=== PATIENT | female | born 1970 | race Caucasian/White ===

== ENCOUNTER → 2016-07-06 | Outpatient (CLI) | payer MEDICARE, MEDICAID ==
[~2016-07-06] MED LIST: 00186-0372-20; 00186-0372-20 IH; ABILIFY 15MG TA15 MG PO; ALBUTEROL0.09 MG/A1 IH; APAP PO; ASPIR-LOW81 MG PO; ASPIR-LOX325 MG PO; ASPIRIN E.C. 8181 MG PO; ATIVAN 1MG T1 MG/TAB PO; ATIVAN2 MG PO; ATROVENT INHALE14 GM IH; BENADRYL25 M2 PO; BENZTROPINE1 MG PO; CARAFATE 1GM1 G PO; CARAFATE S1 GM/10 ML PO; CARDIZEM CD 24240 MG PO; CELEXA 20MG20 MG/TAB PO; CELEXA40 MG PO; CETIRIZINE10 MG PO; CITALOPRAM HYDR40 MG PO; CLARITIN 1010 MG/TAB PO; CLONAZEPAM0.5 MG PO; CLONAZEPAM1 M1 PO; COGENTIN; COLACE 100100 MG/CAP PO; DESYREL 100MG100 MG PO; DESYREL DIVIDO150 M1 PO; DILANTIN; DILANTIN PO; DOXEPIN50 MG PO; DULCOLAX S10 MG/SUPP RC; DULCOLAX TAB5 MG PO; EFFEXOR-XR150 MG PO; FE-TABS325 MG PO; GENTLE LAXATIVE5 MG PO; GLUCOPHAGE500 MG/TAB PO; GLUCOTROL10 MG PO; IMODIUM 2MG CAPS2 MG PO; INSLANT SQ; INVEGA SUSTENN117 MG IM; IRON250 MG PO; JANUVIA25 MG PO; KEPPRA 500MG500 MG PO; KEPPRA1000 MG PO; KEPPRA750 MG PO; KLONOPIN 0.5MG0.5 MG PO; KLONOPIN 1MG1 MG PO; KLONOPIN WAFE0.25 MG PO; KLONOPIN WAFER0.5 MG PO; KLOR-CON M2020 MEQ PO; LANTUS SOLOS100 U/ML SQ; LATUDA60 MG PO; LATUDA80 MG PO; LEXAPRO 5MG5 MG PO; LEXAPRO20 MG PO; LOPRESSOR 550 MG/TAB PO; MECLIZINE25 M1 PO; MECLIZINE25 MG PO; MELATONIN5 M1 PO; MIRTAZAPINE45 M1 PO; MYRBETR50MG PO; MYSOLINE 250MG250 MG PO; NICODERM C14 MG/24 H TD; NORCO 325 MG-51 TAB PO; NORCO 325 MG-7.1 TAB PO; NYSTATIN 100MU/M1 ML PO; OMEPRAZOLE20 MG PO; PEPCID 20MG TAB20 MG PO; PHENERGAN 25 TA25 MG PO; PHENERGAN W/CO120 ML PO; PHENYTEK; POTASSIUM CH2 MEQ/ML PO; PREDNISONE20 MG PO; PRILOSEC 20MG20 MG PO; PRILOSEC20 MG PO; PRILOTC PO; PRINIVIL10 MG PO; PROTONIX 40MG T40 MG PO; PROTONIX20 MG PO; ROBITUSSIN DM480 ML PO; ROBITUSSIN100 MG/5 M PO; ROXICODONE 55 MG/TAB PO; RT ADVAIR 228 DISKUS IH; RT ALBUTER2.5 MG/0.5 IH; SEROQUEL300 MG PO; SEROQUEL400 MG PO; SEROQUEL50 MG PO; SERTRALINE100 MG PO; ST. JOSEPH81 M1 PO; TRAZADONE HYDR100 MG PO; TRAZODO50 MG PO; TYLENOL 325MG325 MG PO; VICODIN 5/5001 UDTAB PO; VIMPAT100 MG PO; VITAMIN D32000 IU PO; ZOFRAN 4MG T4 MG/TAB PO; ZOFRAN ODT4 MG PO; ZOLOFT100 MG PO; ZONEGRAN100 MG PO; ZYPREXA 5MG5 MG PO; ZYPREXA ZYD10 MG/TAB PO; ZYPREXA ZYDIS15 MG PO; ZYPREXA2.5 MG PO; ZYPREXA7.5 MG PO; [UNRECOGNIZED DRUG - OTHER]; [UNRECOGNIZED DRUG - OTHER] PO
== END ==
LOC: ZCOL.LAB 22:49
DX: N39.0 Urinary tract infection, site not specified (principal)

== ENCOUNTER → 2016-07-15 | Outpatient (CLI) | payer MEDICARE, MEDICAID ==
[2016-07-16 00:03] LABS: INFLUENZA B NEGATIVE
== END ==
LOC: ZCOL.LAB 17:11
PROVIDERS: Internal Medicine
DX: J11.2 Influenza due to unidentified influenza virus with gastrointestinal manifestations (principal); R27.8 Other lack of coordination

== ENCOUNTER → 2016-10-06 | Outpatient (CLI) | payer MEDICARE, MEDICAID | LOC: ZCOL.LAB 13:22 | DX: F41.8 Other specified anxiety disorders (principal); K21.9 Gastro-esophageal reflux disease without esophagitis ==

== ENCOUNTER → 2016-10-13 | Outpatient (CLI) | payer MEDICARE, MEDICAID | LOC: ZCOL.LAB 13:55 | DX: Z02.89 Encounter for other administrative examinations (principal) ==

== ENCOUNTER 2016-11-10 21:56 | Emergency (ER) | payer MEDICARE, MEDICAID ==
[2008-09-06 22:55] VITALS: BP 125/82
[~2016-11-10] VITALS: Ht 160 cm; Wt 109.1 kg
[~2016-11-10 21:56] MED LIST changes: -CARAFATE S1 GM/10 ML PO; -CLARITIN 1010 MG/TAB PO; -DESYREL DIVIDO150 M1 PO; -KLONOPIN WAFE0.25 MG PO; -LATUDA60 MG PO; -MELATONIN5 M1 PO; -PEPCID 20MG TAB20 MG PO; -PRINIVIL10 MG PO; -PROTONIX20 MG PO; -ROBITUSSIN100 MG/5 M PO; -ROXICODONE 55 MG/TAB PO; -ZOFRAN ODT4 MG PO; -[UNRECOGNIZED DRUG - OTHER] PO
[2016-11-10 22:02] VITALS: TEMP 98
[2016-11-10 22:25] LABS: BASO % 0.5 % (0.0-2.0); EOS # 0.4 (0.0-0.7); EOS % 5.2 % (0-4.0); GRAN % 47.3 % (42.2-75.2); HEMATOCRIT 40.4 % (37.0-47.0); HEMOGLOBIN 13.9 g/dl (12.5-16.0); LYMPH # 3.4 (1.2-3.4); LYMPH % 40.2 % (20.0-51.0); MEAN CELL VOLUME 87 fl (80.0-100.0); MEAN CORPUSCULAR HEMOGLOBIN 30 pg (27.0-31.0); MEAN CORPUSCULAR HGB CONC 34 g/dl (33.0-37.0); MEAN PLATELET VOLUME 12.2 fl (7.4-10.4); MONO # 0.5 (0.1-0.6); MONO % 6.3 % (1.7-9.3); PLATELET COUNT 185 K/mm3 (130-400); RED BLOOD COUNT 4.65 M/mm3 (4.10-5.30); REDCELL DISTRIBUTION WIDTH-CV 12.4 % (11.5-14.5); WHITE BLOOD COUNT 8.5 K/mm3 (4.8-10.8)
[2016-11-10 22:31] LABS: ADJUSTED CALCIUM 9.2 mg/dL (8.4-10.2); ALANINE AMINOTRANSFERASE 64 U/L (9-52); ALBUMIN 3.9 gm/dL (3.5-5.0); ALKALINE PHOSPHATASE 114 U/L (50-136); ANION GAP 11 mmol/L (7-16); BILIRUBIN,TOTAL 0.6 mg/dL (0.0-1.0); BLOOD UREA NITROGEN 10 mg/dL (7-17); CALCIUM 9.1 mg/dL (8.4-10.2); CARBON DIOXIDE 26 mmol/L (22-30); CHLORIDE 102 mmol/L (98-107); CREATININE, serum 0.81 mg/dL (0.52-1.25); GLUCOSE 196 mg/dL (74-106); MAGNESIUM 1.6 mg/dL (1.6-2.3); POTASSIUM 3.4 mmol/L (3.4-5.0); SODIUM 139 mmol/L (137-145); TOTAL PROTEIN 7.1 gm/dL (6.4-8.2)
[2016-11-10 22:48] LABS: PROLACTIN 15.4 ng/mL (3.0-18.6)
[2016-11-10 23:38] LABS: TROPONIN-I < 0.012 ng/mL (0.000-0.034)
[2016-11-11 00:04] VITALS: BP 127/92; PULSE 94
[2017-02-09] MEDS ORDERED: DESYREL DIVIDO150 M1 PO (00:33)
[2017-02-09] MEDS ORDERED: LATUDA60 MG PO (00:35)
[2017-02-09] MEDS ORDERED: MELATONIN5 M1 PO (00:37)
[2017-02-09] MEDS ORDERED: PRINIVIL10 MG PO (00:39)
[2017-02-09] MEDS ORDERED: PEPCID 20MG TAB20 MG PO (00:40)
[2017-02-09] MEDS ORDERED: GLUCOPHAGE500 MG/TAB PO (00:41)
[2017-02-09] MEDS ORDERED: ROBITUSSIN100 MG/5 M PO (00:47)
[2017-02-09] MEDS ORDERED: [UNRECOGNIZED DRUG - OTHER] PO (00:48)
[2017-02-09] MEDS ORDERED: CLARITIN 1010 MG/TAB PO (00:49)
[2017-02-09] MEDS ORDERED: ZOFRAN ODT4 MG PO (00:50)
[2017-02-18] MEDS ORDERED: ROXICODONE 55 MG/TAB PO (17:19)
[2017-02-18] MEDS ORDERED: KLONOPIN 0.5MG0.5 MG PO (18:31)
[2017-02-18] MEDS ORDERED: KLONOPIN WAFE0.25 MG PO (18:32)
[2017-02-18] MEDS ORDERED: PROTONIX20 MG PO (18:34)
[2017-02-18] MEDS ORDERED: TYLENOL 325MG325 MG PO (18:35)
[2017-02-18] MEDS ORDERED: CARAFATE S1 GM/10 ML PO (19:42)
== END 2016-11-11 00:32 | disposition home or self-care (01) ==
LOC: COL.ER 21:56
PROVIDERS: Emergency Medicine
DX: R56.9 Unspecified convulsions (principal); F41.9 Anxiety disorder, unspecified; F32.9 Major depressive disorder, single episode, unspecified
CPT/HCPCS: J2060

== ENCOUNTER → 2016-11-16 | Outpatient (CLI) | payer MEDICARE, MEDICAID ==
[~2016-11-16] MED LIST changes: +CARAFATE S1 GM/10 ML PO; +CLARITIN 1010 MG/TAB PO; +DESYREL DIVIDO150 M1 PO; +KLONOPIN WAFE0.25 MG PO; +LATUDA60 MG PO; +MELATONIN5 M1 PO; +PEPCID 20MG TAB20 MG PO; +PRINIVIL10 MG PO; +PROTONIX20 MG PO; +ROBITUSSIN100 MG/5 M PO; +ROXICODONE 55 MG/TAB PO; +ZOFRAN ODT4 MG PO; +[UNRECOGNIZED DRUG - OTHER] PO
[2016-11-16 05:35] LABS: BASO % 0.5 % (0.0-2.0); EOS # 0.5 (0.0-0.7); EOS % 5.7 % (0-4.0); GRAN # 4.2 (1.4-6.5); GRAN % 51.1 % (42.2-75.2); HEMATOCRIT 44.7 % (37.0-47.0); HEMOGLOBIN 15.4 g/dl (12.5-16.0); LYMPH # 3.1 (1.2-3.4); LYMPH % 37.2 % (20.0-51.0); MEAN CELL VOLUME 88 fl (80.0-100.0); MEAN CORPUSCULAR HEMOGLOBIN 30 pg (27.0-31.0); MEAN CORPUSCULAR HGB CONC 35 g/dl (33.0-37.0); MONO # 0.4 (0.1-0.6); MONO % 5.1 % (1.7-9.3); PLATELET COUNT 205 K/mm3 (130-400); RED BLOOD COUNT 5.09 M/mm3 (4.10-5.30); REDCELL DISTRIBUTION WIDTH-CV 12.3 % (11.5-14.5); WHITE BLOOD COUNT 8.2 K/mm3 (4.8-10.8)
[2016-11-16 05:42] LABS: ADJUSTED CALCIUM 9.6 mg/dL (8.4-10.2); ALBUMIN 3.7 gm/dL (3.5-5.0); BILIRUBIN,TOTAL 0.5 mg/dL (0.0-1.0); CALCIUM 9.4 mg/dL (8.4-10.2); CREATININE, serum 0.68 mg/dL (0.52-1.25); POTASSIUM 3.6 mmol/L (3.4-5.0); TOTAL PROTEIN 6.9 gm/dL (6.4-8.2)
== END ==
LOC: ZCOL.LAB 04:00
PROVIDERS: Internal Medicine
DX: E11.9 Type 2 diabetes mellitus without complications (principal)

== ENCOUNTER → 2016-12-04 | Outpatient (CLI) | payer MEDICARE, MEDICAID ==
[2016-12-04 13:23] LABS: BASO # 0.1 (0.0-0.2); BASO % 0.6 % (0.0-2.0); EOS # 0.2 (0.0-0.7); EOS % 2.3 % (0-4.0); GRAN # 7.3 (1.4-6.5); LYMPH # 0.9 (1.2-3.4); LYMPH % 10.2 % (20.0-51.0); MEAN CELL VOLUME 89 fl (80.0-100.0); MEAN CORPUSCULAR HGB CONC 32 g/dl (33.0-37.0); MEAN PLATELET VOLUME 11.9 fl (7.4-10.4); MONO # 0.6 (0.1-0.6); MONO % 6.9 % (1.7-9.3); PLATELET COUNT 218 K/mm3 (130-400); RED BLOOD COUNT 3.87 M/mm3 (4.10-5.30); REDCELL DISTRIBUTION WIDTH-CV 15.5 % (11.5-14.5); WHITE BLOOD COUNT 9.2 K/mm3 (4.8-10.8)
[2016-12-04 13:24] LABS: HEMATOCRIT 34.3 % (37.0-47.0); MEAN CORPUSCULAR HEMOGLOBIN 28 pg (27.0-31.0)
[2016-12-04 13:34] LABS: ADJUSTED CALCIUM 9.5 mg/dL (8.4-10.2); ALBUMIN 3.8 gm/dL (3.5-5.0); BILIRUBIN,TOTAL 0.6 mg/dL (0.0-1.0); CALCIUM 9.3 mg/dL (8.4-10.2); CREATININE, serum 0.63 mg/dL (0.52-1.25); POTASSIUM 4.4 mmol/L (3.4-5.0); TOTAL PROTEIN 6.7 gm/dL (6.4-8.2)
== END ==
LOC: ZCOL.LAB 13:14
PROVIDERS: Internal Medicine
DX: F31.9 Bipolar disorder, unspecified (principal); J44.9 Chronic obstructive pulmonary disease, unspecified; E11.9 Type 2 diabetes mellitus without complications

== ENCOUNTER → 2017-01-09 | Outpatient (CLI) | payer MEDICARE, MEDICAID | LOC: ZCOL.LAB 15:13 | DX: E78.3 Hyperchylomicronemia (principal) ==

== ENCOUNTER 2017-02-08 15:58 | Emergency (ER) | payer MEDICARE, MEDICAID ==
[2008-09-06 22:55] VITALS: BP 125/82
[~2017-02-08] VITALS: Ht 160 cm; Wt 100.0 kg
[~2017-02-08 15:58] MED LIST changes: -CARAFATE S1 GM/10 ML PO; -CLARITIN 1010 MG/TAB PO; -DESYREL DIVIDO150 M1 PO; -KLONOPIN WAFE0.25 MG PO; -LATUDA60 MG PO; -MELATONIN5 M1 PO; -PEPCID 20MG TAB20 MG PO; -PRINIVIL10 MG PO; -PROTONIX20 MG PO; -ROBITUSSIN100 MG/5 M PO; -ROXICODONE 55 MG/TAB PO; -ZOFRAN ODT4 MG PO; -[UNRECOGNIZED DRUG - OTHER] PO
[2017-02-08 16:05] VITALS: TEMP 98.1
[2017-02-08 18:57] LABS: BASO % 0.4 % (0.0-2.0); EOS # 0.4 (0.0-0.7); EOS % 4.3 % (0-4.0); GRAN # 4.8 (1.4-6.5); GRAN % 57.2 % (42.2-75.2); HEMATOCRIT 46.2 % (37.0-47.0); HEMOGLOBIN 15.5 g/dl (12.5-16.0); LYMPH # 2.8 (1.2-3.4); LYMPH % 32.5 % (20.0-51.0); MEAN CELL VOLUME 90 fl (80.0-100.0); MEAN CORPUSCULAR HEMOGLOBIN 30 pg (27.0-31.0); MEAN CORPUSCULAR HGB CONC 34 g/dl (33.0-37.0); MEAN PLATELET VOLUME 11.9 fl (7.4-10.4); MONO # 0.4 (0.1-0.6); MONO % 5.2 % (1.7-9.3); PLATELET COUNT 193 K/mm3 (130-400); RED BLOOD COUNT 5.16 M/mm3 (4.10-5.30); REDCELL DISTRIBUTION WIDTH-CV 12.7 % (11.5-14.5); WHITE BLOOD COUNT 8.5 K/mm3 (4.8-10.8)
[2017-02-08 19:09] LABS: ADJUSTED CALCIUM 9.3 mg/dL (8.4-10.2); ALANINE AMINOTRANSFERASE 92 U/L (9-52); ALBUMIN 4.4 gm/dL (3.5-5.0); ALKALINE PHOSPHATASE 122 U/L (50-136); AMYLASE 150 U/L (30-110); ANION GAP 13 mmol/L (7-16); BILIRUBIN,TOTAL 0.5 mg/dL (0.0-1.0); BLOOD UREA NITROGEN 5 mg/dL (7-17); C-REACTIVE PROTEIN 1.6 mg/dL (0.0-0.9); CALCIUM 9.6 mg/dL (8.4-10.2); CARBON DIOXIDE 24 mmol/L (22-30); CHLORIDE 105 mmol/L (98-107); CREATININE, serum 0.61 mg/dL (0.52-1.25); GLUCOSE 95 mg/dL (74-106); LIPASE 449 U/L (23-300); POTASSIUM 3.6 mmol/L (3.4-5.0); SODIUM 142 mmol/L (137-145); TOTAL PROTEIN 7.6 gm/dL (6.4-8.2)
[2017-02-08 19:20] LABS: TROPONIN-I < 0.012 ng/mL (0.000-0.034)
[2017-02-08] MEDS ORDERED: NORCO 325 MG-51 TAB PO (20:47)
[2017-02-08 21:45] VITALS: BP 146/88; PULSE 95
[2017-02-09] MEDS ORDERED: DESYREL DIVIDO150 M1 PO (00:33)
[2017-02-09] MEDS ORDERED: LATUDA60 MG PO (00:35)
[2017-02-09] MEDS ORDERED: MELATONIN5 M1 PO (00:37)
[2017-02-09] MEDS ORDERED: PRINIVIL10 MG PO (00:39)
[2017-02-09] MEDS ORDERED: PEPCID 20MG TAB20 MG PO (00:40)
[2017-02-09] MEDS ORDERED: GLUCOPHAGE500 MG/TAB PO (00:41)
[2017-02-09] MEDS ORDERED: ROBITUSSIN100 MG/5 M PO (00:47)
[2017-02-09] MEDS ORDERED: [UNRECOGNIZED DRUG - OTHER] PO (00:48)
[2017-02-09] MEDS ORDERED: CLARITIN 1010 MG/TAB PO (00:49)
[2017-02-09] MEDS ORDERED: ZOFRAN ODT4 MG PO (00:50)
[2017-02-18] MEDS ORDERED: ROXICODONE 55 MG/TAB PO (17:19)
[2017-02-18] MEDS ORDERED: KLONOPIN 0.5MG0.5 MG PO (18:31)
[2017-02-18] MEDS ORDERED: KLONOPIN WAFE0.25 MG PO (18:32)
[2017-02-18] MEDS ORDERED: PROTONIX20 MG PO (18:34)
[2017-02-18] MEDS ORDERED: TYLENOL 325MG325 MG PO (18:35)
[2017-02-18] MEDS ORDERED: CARAFATE S1 GM/10 ML PO (19:42)
== END 2017-02-08 21:45 | disposition home or self-care (01) ==
LOC: COL.ER 15:58
PROVIDERS: Physician Assistant
DX: R10.10 Upper abdominal pain, unspecified (principal); R74.8 Abnormal levels of other serum enzymes; E11.9 Type 2 diabetes mellitus without complications; I10 Essential (primary) hypertension; F41.9 Anxiety disorder, unspecified; F32.9 Major depressive disorder, single episode, unspecified; F60.3 Borderline personality disorder; F17.210 Nicotine dependence, cigarettes, uncomplicated; Z90.49 Acquired absence of other specified parts of digestive tract; Z90.710 Acquired absence of both cervix and uterus; Z79.82 Long term (current) use of aspirin; Z79.4 Long term (current) use of insulin; Z79.84 Long term (current) use of oral hypoglycemic drugs
CPT/HCPCS: J1170; J2405; J7030

== ENCOUNTER → 2017-02-13 | Outpatient (CLI) | payer MEDICARE, MEDICAID ==
[~2017-02-13] MED LIST changes: +CARAFATE S1 GM/10 ML PO; +CLARITIN 1010 MG/TAB PO; +DESYREL DIVIDO150 M1 PO; +KLONOPIN WAFE0.25 MG PO; +LATUDA60 MG PO; +MELATONIN5 M1 PO; +PEPCID 20MG TAB20 MG PO; +PRINIVIL10 MG PO; +PROTONIX20 MG PO; +ROBITUSSIN100 MG/5 M PO; +ROXICODONE 55 MG/TAB PO; +ZOFRAN ODT4 MG PO; +[UNRECOGNIZED DRUG - OTHER] PO
[2017-02-13 05:32] LABS: ADJUSTED CALCIUM 9.7 mg/dL (8.4-10.2); BILIRUBIN,TOTAL 0.6 mg/dL (0.0-1.0); CALCIUM 9.7 mg/dL (8.4-10.2); CREATININE, serum 0.77 mg/dL (0.52-1.25); POTASSIUM 3.9 mmol/L (3.4-5.0); TOTAL PROTEIN 6.9 gm/dL (6.4-8.2)
== END ==
LOC: ZCOL.LAB 04:48
PROVIDERS: Internal Medicine
DX: F31.9 Bipolar disorder, unspecified (principal)

== ENCOUNTER → 2017-02-16 | Outpatient (CLI) | payer MEDICARE, MEDICAID | LOC: ZCOL.LAB 11:57 | DX: E11.9 Type 2 diabetes mellitus without complications (principal) ==

== ENCOUNTER → 2017-02-17 | Outpatient (CLI) | payer MEDICARE, MEDICAID | LOC: COL.RAD 10:20 | DX: K76.0 Fatty (change of) liver, not elsewhere classified (principal) ==

== ENCOUNTER → 2017-04-28 | Outpatient (CLI) | payer MEDICARE, MEDICAID ==
[2017-04-28 12:23] LABS: CHOLESTEROL RISK RATIO 4.4
== END ==
LOC: ZCOL.LAB 11:45
PROVIDERS: Internal Medicine
DX: E78.00 Pure hypercholesterolemia, unspecified (principal)

== ENCOUNTER → 2017-04-30 | Outpatient (CLI) | payer MEDICARE, MEDICAID | LOC: ZCOL.LAB 17:34 | DX: R56.9 Unspecified convulsions (principal) ==

== ENCOUNTER 2017-05-21 22:43 | Emergency (ER) | payer MEDICARE, MEDICAID ==
[2008-09-06 22:55] VITALS: BP 125/82
[2017-05-21 22:55] VITALS: TEMP 98.2
[2017-05-21] MEDS ORDERED: RT ADVAIR 228 DISKUS IH (23:06)
[2017-05-21 23:07] LABS: BASO % 0.3 % (0.0-2.0); EOS # 0.6 (0.0-0.7); EOS % 6.9 % (0-4.0); GRAN # 4.6 (1.4-6.5); GRAN % 49.8 % (42.2-75.2); HEMATOCRIT 43.6 % (37.0-47.0); HEMOGLOBIN 14.6 g/dl (12.5-16.0); LYMPH # 3.4 (1.2-3.4); LYMPH % 36.8 % (20.0-51.0); MEAN CELL VOLUME 90 fl (80.0-100.0); MEAN CORPUSCULAR HEMOGLOBIN 30 pg (27.0-31.0); MEAN CORPUSCULAR HGB CONC 34 g/dl (33.0-37.0); MEAN PLATELET VOLUME 12.5 fl (7.4-10.4); MONO # 0.5 (0.1-0.6); MONO % 5.9 % (1.7-9.3); PLATELET COUNT 194 K/mm3 (130-400); RED BLOOD COUNT 4.85 M/mm3 (4.10-5.30); WHITE BLOOD COUNT 9.2 K/mm3 (4.8-10.8)
[2017-05-21] MEDS ORDERED: DULCOLAX S10 MG/SUPP RC (23:07)
[2017-05-21 23:13] LABS: ADJUSTED CALCIUM 9.4 mg/dL (8.4-10.2); ALBUMIN 4.1 gm/dL (3.5-5.0); BILIRUBIN,TOTAL 0.4 mg/dL (0.0-1.0); CALCIUM 9.5 mg/dL (8.4-10.2); CREATININE, serum 0.58 mg/dL (0.52-1.25); POTASSIUM 3.3 mmol/L (3.4-5.0); TOTAL PROTEIN 7.3 gm/dL (6.4-8.2)
[2017-05-21] MEDS ORDERED: REFRESH TEARS 330 ML OP (23:13)
[2017-05-21] MEDS ORDERED: NYSTATIN POWDER15 GM TOP (23:15)
[2017-05-21] MEDS ORDERED: PRIL40 PO (23:18)
[2017-05-21 23:30] LABS: PROLACTIN 22.5 ng/mL (3.0-18.6)
[2017-05-21 23:33] LABS: COLLECTION METHOD CATHETER
[2017-05-21 23:39] LABS: PH 7 (5-8); SQUAMOUS EPITHELIAL None Seen /hpf; URINE APPEARANCE Clear; URINE BACTERIA Many /hpf; URINE BILIRUBIN Negative (NEGATIVE); URINE BLOOD 2+ (NEGATIVE); URINE COLOR Straw; URINE GLUCOSE Negative (NEGATIVE); URINE KETONE Negative (NEGATIVE); URINE LEUKOCYTE ESTERASE Trace (NEGATIVE); URINE PROTEIN(semi-quant) Negative (NEGATIVE); URINE RBC 0-2 /hpf; URINE UROBILINOGEN Negative (NEGATIVE)
[2017-05-22] MEDS ORDERED: CEPHALEXIN500 M1 PO (00:29)
[2017-05-22 01:15] VITALS: BP 132/88; PULSE 99
== END 2017-05-22 01:18 ==
LOC: COL.ER 22:43
PROVIDERS: Emergency Medicine
DX: R56.9 Unspecified convulsions (principal); N39.0 Urinary tract infection, site not specified; I10 Essential (primary) hypertension; F31.9 Bipolar disorder, unspecified; F41.9 Anxiety disorder, unspecified; J44.9 Chronic obstructive pulmonary disease, unspecified; F17.210 Nicotine dependence, cigarettes, uncomplicated; Z87.19 Personal history of other diseases of the digestive system; Z79.82 Long term (current) use of aspirin
CPT/HCPCS: J7030

== ENCOUNTER → 2017-06-02 | Outpatient (CLI) | payer MEDICARE, MEDICAID ==
[~2017-06-02] MED LIST changes: +CEPHALEXIN500 M1 PO; +NYSTATIN POWDER15 GM TOP; +PRIL40 PO; +REFRESH TEARS 330 ML OP
[2017-06-02 03:53] LABS: BASO % 0.4 % (0.0-2.0); EOS # 0.6 (0.0-0.7); EOS % 8.7 % (0-4.0); GRAN # 3.6 (1.4-6.5); GRAN % 49.8 % (42.2-75.2); HEMATOCRIT 40.4 % (37.0-47.0); HEMOGLOBIN 13.6 g/dl (12.5-16.0); LYMPH # 2.5 (1.2-3.4); LYMPH % 34.5 % (20.0-51.0); MEAN CELL VOLUME 90 fl (80.0-100.0); MEAN CORPUSCULAR HEMOGLOBIN 30 pg (27.0-31.0); MEAN CORPUSCULAR HGB CONC 34 g/dl (33.0-37.0); MONO # 0.4 (0.1-0.6); PLATELET COUNT 180 K/mm3 (130-400); RED BLOOD COUNT 4.47 M/mm3 (4.10-5.30); WHITE BLOOD COUNT 7.2 K/mm3 (4.8-10.8)
[2017-06-02 04:00] LABS: ADJUSTED CALCIUM 10.3 mg/dL (8.4-10.2); ALBUMIN 3.4 gm/dL (3.5-5.0); BILIRUBIN,TOTAL 0.4 mg/dL (0.0-1.0); CALCIUM 9.8 mg/dL (8.4-10.2); CREATININE, serum 0.6 mg/dL (0.52-1.25); POTASSIUM 3.6 mmol/L (3.4-5.0); TOTAL PROTEIN 6.2 gm/dL (6.4-8.2)
== END ==
LOC: ZCOL.LAB 03:46
PROVIDERS: Internal Medicine
DX: Z13.0 Encounter for screening for diseases of the blood and blood-forming organs and certain disorders involving the immune mechanism (principal); E11.9 Type 2 diabetes mellitus without complications; Z79.82 Long term (current) use of aspirin

== ENCOUNTER → 2017-08-06 | Outpatient (CLI) | payer MEDICARE, MEDICAID | LOC: ZCOL.LAB 16:49 | DX: J11.1 Influenza due to unidentified influenza virus with other respiratory manifestations (principal) ==

== ENCOUNTER → 2017-11-06 | Outpatient (REF) | LOC: ZCOL.LAB 14:43 | DX: F41.9 Anxiety disorder, unspecified (principal); E53.8 Deficiency of other specified B group vitamins ==

== ENCOUNTER 2017-12-04 22:01 | Inpatient (IN) | payer MEDICARE, MEDICAID ==
[~2017-12-04] VITALS: Ht 160 cm; Wt 98.2 kg
[2017-12-04 22:37] LABS: BASO % 0.4 % (0.0-2.0); EOS # 0.4 (0.0-0.7); EOS % 5.2 % (0-4.0); GRAN # 3.1 (1.4-6.5); GRAN % 43.2 % (42.2-75.2); HEMOGLOBIN 15.5 g/dl (12.5-16.0); LYMPH # 3.1 (1.2-3.4); LYMPH % 44.3 % (20.0-51.0); MEAN CELL VOLUME 88 fl (80.0-100.0); MEAN CORPUSCULAR HEMOGLOBIN 30 pg (27.0-31.0); MEAN CORPUSCULAR HGB CONC 34 g/dl (33.0-37.0); MEAN PLATELET VOLUME 12.1 fl (7.4-10.4); MONO # 0.5 (0.1-0.6); MONO % 6.6 % (1.7-9.3); PLATELET COUNT 206 K/mm3 (130-400); RED BLOOD COUNT 5.26 M/mm3 (4.10-5.30); REDCELL DISTRIBUTION WIDTH-CV 12.8 % (11.5-14.5)
[2017-12-04 22:47] LABS: ALBUMIN 3.9 gm/dL (3.5-5.0); BILIRUBIN,TOTAL 0.4 mg/dL (0.0-1.0); CALCIUM 9.3 mg/dL (8.4-10.2); CREATININE, serum 0.74 mg/dL (0.52-1.25); POTASSIUM 3.5 mmol/L (3.4-5.0); TOTAL PROTEIN 7.8 gm/dL (6.4-8.2)
[2017-12-05] VITALS (7 sets, daily range): BP systolic 108–1356; BP diastolic 70–95; PULSE 91–112; TEMP 98–98.7
[2017-12-05] MEDS ORDERED: CARAFATE 1GM1 G PO (02:20)
[2017-12-05 04:14] LABS: ARTERIAL BLD GAS TCO2 CT 26.1; ARTERIAL BLOOD GAS BASE EXCESS 0.1 (-2-2); ARTERIAL BLOOD GAS HCO3 24.8 meq/L (22-26); ARTERIAL BLOOD GAS PCO2 40.8 mmHg (35-45); ARTERIAL BLOOD GAS PO2 75.7 mmHg (80-100)
[2017-12-05 06:51] LABS: BASO % 0.5 % (0.0-2.0); EOS % 0.2 % (0-4.0); GRAN % 73.1 % (42.2-75.2); HEMOGLOBIN 14.6 g/dl (12.5-16.0); LYMPH % 24.8 % (20.0-51.0); MEAN CELL VOLUME 90 fl (80.0-100.0); MEAN CORPUSCULAR HEMOGLOBIN 30 pg (27.0-31.0); MEAN CORPUSCULAR HGB CONC 33 g/dl (33.0-37.0); MEAN PLATELET VOLUME 12.5 fl (7.4-10.4); MONO # 0.1 (0.1-0.6); MONO % 1.2 % (1.7-9.3); PLATELET COUNT 173 K/mm3 (130-400); RED BLOOD COUNT 4.89 M/mm3 (4.10-5.30); REDCELL DISTRIBUTION WIDTH-CV 12.7 % (11.5-14.5)
[2017-12-05 07:01] LABS: CALCIUM 8.9 mg/dL (8.4-10.2); CREATININE, serum 0.66 mg/dL (0.52-1.25); POTASSIUM 3.9 mmol/L (3.4-5.0)
[2017-12-06 04:41] VITALS: BP 138/90; PULSE 94; TEMP 97.5
[2017-12-06 05:58] LABS: GRAN # 4.5 (1.4-6.5); GRAN % 74.6 % (42.2-75.2); HEMOGLOBIN 14.1 g/dl (12.5-16.0); LYMPH # 1.4 (1.2-3.4); LYMPH % 22.8 % (20.0-51.0); MEAN CELL VOLUME 89 fl (80.0-100.0); MEAN CORPUSCULAR HEMOGLOBIN 29 pg (27.0-31.0); MEAN CORPUSCULAR HGB CONC 33 g/dl (33.0-37.0); MEAN PLATELET VOLUME 12.6 fl (7.4-10.4); MONO # 0.1 (0.1-0.6); MONO % 1.8 % (1.7-9.3); PLATELET COUNT 173 K/mm3 (130-400); RED BLOOD COUNT 4.84 M/mm3 (4.10-5.30); REDCELL DISTRIBUTION WIDTH-CV 12.6 % (11.5-14.5)
[2017-12-06 06:13] LABS: CALCIUM 9.3 mg/dL (8.4-10.2); CREATININE, serum 0.63 mg/dL (0.52-1.25); POTASSIUM 4.3 mmol/L (3.4-5.0)
[2017-12-06 08:48] VITALS: BP 154/90; PULSE 89; TEMP 97.7
[2017-12-06 12:45] VITALS: BP 128/76; PULSE 95; TEMP 97.9
[2017-12-06 17:21] VITALS: BP 119/92; PULSE 98; TEMP 97.6
[2017-12-06 19:50] VITALS: BP 147/96; PULSE 94; TEMP 98.7
[2017-12-06 23:49] VITALS: BP 136/94; PULSE 90; TEMP 98.1
[2017-12-07 04:55] VITALS: BP 135/81; PULSE 72; TEMP 98.1
[2017-12-07 07:54] VITALS: BP 137/82; PULSE 75; TEMP 97.4
[2017-12-07 11:13] VITALS: BP 139/90; PULSE 89; TEMP 97.5
[2017-12-07 16:11] VITALS: BP 149/95; PULSE 90; TEMP 98.3
[2017-12-07 19:37] VITALS: BP 134/88; PULSE 99; TEMP 97.4
[2017-12-08] VITALS: BP 125/82; BP 129/83; PULSE 74; PULSE 79; TEMP 97.8; TEMP 97.9
[2017-12-08 04:36] VITALS: BP 129/84; PULSE 68; TEMP 98.1
[2017-12-08 07:40] VITALS: BP 151/87; PULSE 75; TEMP 96.5
[2017-12-08 09:01] LABS: BASO % 0.3 % (0.0-2.0); EOS % 0.1 % (0-4.0); GRAN # 3.7 (1.4-6.5); GRAN % 52.2 % (42.2-75.2); HEMOGLOBIN 14.1 g/dl (12.5-16.0); LYMPH # 2.9 (1.2-3.4); LYMPH % 41.3 % (20.0-51.0); MEAN CELL VOLUME 86 fl (80.0-100.0); MEAN CORPUSCULAR HEMOGLOBIN 29 pg (27.0-31.0); MEAN CORPUSCULAR HGB CONC 34 g/dl (33.0-37.0); MEAN PLATELET VOLUME 11.8 fl (7.4-10.4); MONO # 0.4 (0.1-0.6); MONO % 5.5 % (1.7-9.3); PLATELET COUNT 140 K/mm3 (130-400); RED BLOOD COUNT 4.79 M/mm3 (4.10-5.30); REDCELL DISTRIBUTION WIDTH-CV 12.4 % (11.5-14.5)
[2017-12-08 09:13] LABS: CALCIUM 9.1 mg/dL (8.4-10.2); CREATININE, serum 0.69 mg/dL (0.52-1.25); POTASSIUM 3.1 mmol/L (3.4-5.0)
[2017-12-08] MEDS ORDERED: DOXYCYCLINE 10100 MG PO (10:13)
[2017-12-08] MEDS ORDERED: TESSALON PERLE200 MG PO (10:14)
[2017-12-08] MEDS ORDERED: PREDNISONE20 MG PO (10:15)
[2017-12-08] MEDS ORDERED: LATUDA40 MG PO (10:16)
[2017-12-08 11:16] VITALS: BP 142/91; PULSE 89; TEMP 97.7
[2017-12-08 14:06] VITALS: BP 142/91; PULSE 89; TEMP 97.7
== END 2017-12-08 14:30 | DRG 191 ==
LOC: COL.ER 22:01 → SURG 23:25
PROVIDERS: Family Medicine; Nurse Practitioner
DX: J44.1 Chronic obstructive pulmonary disease with (acute) exacerbation (principal); F31.81 Bipolar II disorder; E11.9 Type 2 diabetes mellitus without complications; G40.909 Epilepsy, unspecified, not intractable, without status epilepticus; K21.9 Gastro-esophageal reflux disease without esophagitis; G47.00 Insomnia, unspecified; F41.1 Generalized anxiety disorder; F60.3 Borderline personality disorder
CPT/HCPCS: 99232-AI; 99239; G0378; J1650; J1815; J2930; J7030; J7512

== ENCOUNTER → 2018-01-16 | Outpatient (REF) ==
[~2018-01-16] MED LIST changes: +DOXYCYCLINE 10100 MG PO; +LATUDA40 MG PO; +TESSALON PERLE200 MG PO
== END ==
LOC: ZCOL.LAB 11:34
DX: Z01.89 Encounter for other specified special examinations (principal); R56.9 Unspecified convulsions

== ENCOUNTER → 2018-02-24 | Outpatient (REF) | LOC: ZCOL.LAB 13:55 | DX: E11.9 Type 2 diabetes mellitus without complications (principal) ==

== ENCOUNTER → 2018-03-19 | Outpatient (CLI) | payer MEDICARE, MEDICAID | LOC: COL.LAB 16:09 | DX: Z01.89 Encounter for other specified special examinations (principal) ==

== ENCOUNTER → 2018-04-15 | Outpatient (CLI) | payer MEDICARE, MEDICAID | LOC: COL.LAB 16:51 | DX: J02.9 Acute pharyngitis, unspecified (principal) ==

== ENCOUNTER → 2018-04-28 | Outpatient (CLI) | payer MEDICARE, MEDICAID | LOC: ZCOL.LAB 10:35 | DX: E11.9 Type 2 diabetes mellitus without complications (principal) ==

== ENCOUNTER → 2018-04-29 | Outpatient (CLI) | payer MEDICARE, MEDICAID ==
[2018-04-29 14:55] LABS: CHOLESTEROL RISK RATIO 3.8
== END ==
LOC: ZCOL.LAB 14:39
PROVIDERS: Internal Medicine
DX: E11.9 Type 2 diabetes mellitus without complications (principal)

== ENCOUNTER 2018-06-10 11:33 | Emergency (ER) | payer MEDICARE, MEDICAID ==
[2008-09-06 22:55] VITALS: BP 125/82
[~2018-06-10] VITALS: Ht 160 cm; Wt 81.8 kg
[2018-06-10 11:37] VITALS: BP 111/79; TEMP 97.8
[2018-06-10 13:08] LABS: BASO % 0.3 % (0.0-2.0); EOS # 0.2 (0.0-0.7); EOS % 3.1 % (0-4.0); GRAN # 3.3 (1.4-6.5); GRAN % 55.8 % (42.2-75.2); HEMATOCRIT 43.5 % (37.0-47.0); HEMOGLOBIN 14.4 g/dl (12.5-16.0); LYMPH # 2.1 (1.2-3.4); LYMPH % 36.5 % (20.0-51.0); MEAN CELL VOLUME 87 fl (80.0-100.0); MEAN CORPUSCULAR HEMOGLOBIN 29 pg (27.0-31.0); MEAN CORPUSCULAR HGB CONC 33 g/dl (33.0-37.0); MEAN PLATELET VOLUME 12.5 fl (7.4-10.4); MONO # 0.3 (0.1-0.6); MONO % 4.3 % (1.7-9.3); PLATELET COUNT 171 K/mm3 (130-400); RED BLOOD COUNT 5.01 M/mm3 (4.10-5.30); REDCELL DISTRIBUTION WIDTH-CV 12.4 % (11.5-14.5)
[2018-06-10 13:24] LABS: ALBUMIN 3.9 gm/dL (3.5-5.0); BILIRUBIN,TOTAL 0.4 mg/dL (0.0-1.0); C-REACTIVE PROTEIN 0.8 mg/dL (0.0-0.9); CALCIUM 9.4 mg/dL (8.4-10.2); CREATININE, serum 0.7 mg/dL (0.52-1.25); POTASSIUM 3.8 mmol/L (3.4-5.0)
[2018-06-10 14:26] LABS: COLLECTION METHOD CATHETER
[2018-06-10 14:49] LABS: MUCOUS Present /lpf; PH 6 (5-8); SQUAMOUS EPITHELIAL 0-2 /hpf; URINE APPEARANCE Hazy; URINE BACTERIA None Seen /hpf; URINE BILIRUBIN Negative (NEGATIVE); URINE BLOOD Negative (NEGATIVE); URINE COLOR Amber; URINE GLUCOSE Negative (NEGATIVE); URINE KETONE Negative (NEGATIVE); URINE LEUKOCYTE ESTERASE Negative (NEGATIVE); URINE NITRATE Negative (NEGATIVE); URINE PROTEIN(semi-quant) 1+ (NEGATIVE)
[2018-06-10 15:48] VITALS: PULSE 71
== END 2018-06-10 16:43 | disposition home or self-care (01) ==
LOC: COL.ER 11:33
PROVIDERS: Physician Assistant
DX: R10.13 Epigastric pain (principal); I10 Essential (primary) hypertension; J44.9 Chronic obstructive pulmonary disease, unspecified; E11.9 Type 2 diabetes mellitus without complications; F31.9 Bipolar disorder, unspecified; F41.9 Anxiety disorder, unspecified; F17.210 Nicotine dependence, cigarettes, uncomplicated; Z90.49 Acquired absence of other specified parts of digestive tract; Z90.710 Acquired absence of both cervix and uterus; Z79.82 Long term (current) use of aspirin; Z79.51 Long term (current) use of inhaled steroids
CPT/HCPCS: J2270; J2405; J7030; Q9967

== ENCOUNTER → 2019-05-02 | Outpatient (CLI) | payer MEDICARE, MEDICAID | LOC: COL.CARD 10:03 | DX: G40.909 Epilepsy, unspecified, not intractable, without status epilepticus (principal); R27.0 Ataxia, unspecified ==

== ENCOUNTER 2021-05-27 13:17 | Outpatient (RCR) | payer MEDICARE, MEDICAID | END 2021-06-28 | disposition home or self-care (01) | LOC: WSST | DX: R13.10 Dysphagia, unspecified (principal) ==

== ENCOUNTER 2021-07-26 16:51 | Emergency (ER) | payer MEDICARE, MEDICAID ==
[~2021-07-26] VITALS: Ht 160 cm; Wt 104.1 kg
[2021-07-26 16:59] VITALS: TEMP 98.2
[2021-07-26 17:52] LABS: BASO % 0.5 % (0.0-2.0); EOS # 0.1 K/mm3 (0.0-0.7); GRAN # 2.8 K/mm3 (1.4-6.5); GRAN % 50.4 % (42.2-75.2); HEMATOCRIT 39.2 % (37.0-47.0); HEMOGLOBIN 12.8 g/dl (12.5-16.0); LYMPH # 2.1 K/mm3 (1.2-3.4); LYMPH % 37.4 % (20.0-51.0); MEAN CELL VOLUME 86 fl (80.0-100.0); MEAN CORPUSCULAR HEMOGLOBIN 28 pg (27-31); MEAN CORPUSCULAR HGB CONC 33 g/dl (33.0-37.0); MEAN PLATELET VOLUME 10.9 fl (7.4-10.4); MONO # 0.5 K/mm3 (0.1-0.6); MONO % 9.3 % (1.7-9.3); PLATELET COUNT 193 K/mm3 (130-400); RED BLOOD COUNT 4.58 M/mm3 (4.10-5.30)
[2021-07-26 18:05] LABS: ALBUMIN 3.7 gm/dL (3.5-5.0); BILIRUBIN,TOTAL 0.2 mg/dL (0.2-1.2); CALCIUM 8.8 mg/dL (8.4-10.2); CREATININE, serum 0.84 mg/dL (0.57-1.11); POTASSIUM 3.7 mmol/L (3.5-4.5); TOTAL PROTEIN 7.5 gm/dL (6.2-8.1)
[2021-07-26 18:47] VITALS: BP 141/93; PULSE 78
== END 2021-07-26 17:38 | disposition home or self-care (01) ==
LOC: COL.ER 16:51
PROVIDERS: Student in an Organized Health Care Education/Training Program
DX: U07.1 COVID-19 (principal); I10 Essential (primary) hypertension; E11.9 Type 2 diabetes mellitus without complications; J44.9 Chronic obstructive pulmonary disease, unspecified; F41.9 Anxiety disorder, unspecified; F31.9 Bipolar disorder, unspecified; F60.3 Borderline personality disorder; Z79.84 Long term (current) use of oral hypoglycemic drugs; Z79.899 Other long term (current) drug therapy

== ENCOUNTER → 2022-02-18 | Outpatient (CLI) | payer MEDICARE, MEDICAID | LOC: MHCPAIN 13:20 | DX: M50.30 Other cervical disc degeneration, unspecified cervical region (principal); M54.50 Low back pain, unspecified; M25.551 Pain in right hip; M25.552 Pain in left hip; R26.89 Other abnormalities of gait and mobility; Z99.3 Dependence on wheelchair | CPT/HCPCS: G0463 ==

== ENCOUNTER 2022-09-05 09:22 | Day surgery (SDC) | payer MEDICARE, MEDICAID ==
[2008-09-06 22:55] VITALS: BP 125/82
[~2022-09-05] VITALS: Ht 160 cm; Wt 99.7 kg
[~2022-09-05 09:22] MED LIST changes: -DESYREL DIVIDO150 M1 PO; -PRINIVIL10 MG PO; +PRINIVIL20 MG PO
[2022-09-05 10:11] VITALS: BP 146/105; PULSE 91; TEMP 98.7
[2022-09-05] MEDS ORDERED: PROAIR HFA0.09 MG/AC IH (10:39)
[2022-09-05] MEDS ORDERED: ATARAX 25MG25 MG/TAB PO (10:40)
[2022-09-05] MEDS ORDERED: ABILIFY 15MG TA15 MG PO (10:41)
[2022-09-05] MEDS ORDERED: LINZESS72 MCG PO (10:42)
[2022-09-05] MEDS ORDERED: TRILEPTAL 300M300 MG PO ×2 (10:44→10:45)
[2022-09-05] MEDS ORDERED: FERROUS GL325 MG/TAB PO (10:45)
[2022-09-05] MEDS ORDERED: PROTONIX 40MG T40 MG PO (10:46)
[2022-09-05] MEDS ORDERED: CLARITIN 1010 MG/TAB PO (10:46)
[2022-09-05] MEDS ORDERED: GERI-LANTA 355355 ML PO (10:51)
[2022-09-05 12:10] VITALS: BP 134/87; PULSE 97; TEMP 98.7
--- NOTE | 2022-09-05 12:10 | NUR ---
1210 PATIENT RETURNS TO ROOM 7 VIA CART. PATIENT IS DROWSY BUT ALERTS TO VERBAL STIMULI. PATIENT WAS ASSISTED BY 2 NURSES STAND PIVOT TRANSFER TO [facility] PATIENT USES WHEELCHAIR FOR AMBULATION. RESPIRATIONS EVEN AND UNLABORED. VITAL SIGNS OBTAINED. PATIENT DAUGHTER IS IN ROOM. PATIENT REQUESTED A MUFFIN AND SPRITE, NO DIFFICULTIES SWALLOWING. 1218 DOCTOR IN TO SPEAK WITH PATIENT. 1225 THIS NURSE REVIEWED DISCHARGE INSTRUCTIONS WITH PATIENT AND PATIENT DAUGHTER. BOTH VERBALIZED UNDERSTANDING. 1230 DISCONTINUED IV FORM RIGHT HAND WITH NO DIFFICULTIES. 1240 PATIENT DISCHARGES FROM UNIT IN STABLE CONDITION VIA WHEELCHAIR.
[2022-09-05 12:25] VITALS: BP 138/89; PULSE 94
[2022-09-05 12:40] VITALS: BP 140/82; PULSE 90
== END 2022-09-05 12:40 | disposition home or self-care (01) ==
LOC: SDCO 09:22
DX: K59.09 Other constipation (principal); K31.89 Other diseases of stomach and duodenum; K31.1 Adult hypertrophic pyloric stenosis; K21.9 Gastro-esophageal reflux disease without esophagitis; K57.30 Diverticulosis of large intestine without perforation or abscess without bleeding; E66.01 Morbid (severe) obesity due to excess calories; F17.210 Nicotine dependence, cigarettes, uncomplicated; Z68.38 Body mass index [BMI] 38.0-38.9, adult; Z79.899 Other long term (current) drug therapy
CPT/HCPCS: J2250; J2704; J7120

== ENCOUNTER 2022-10-23 15:57 | Outpatient (RCR) | payer MEDICARE, MEDICAID ==
[~2022-10-23 15:57] MED LIST changes: +ATARAX 25MG25 MG/TAB PO; +FERROUS GL325 MG/TAB PO; +GERI-LANTA 355355 ML PO; +LINZESS72 MCG PO; +PROAIR HFA0.09 MG/AC IH; +TRILEPTAL 300M300 MG PO
== END 2022-10-23 15:59 ==
LOC: MKS.ESL.PT 15:57
DX: R26.89 Other abnormalities of gait and mobility (principal)

== ENCOUNTER → 2023-09-08 | Outpatient (CLI) | payer MEDICARE, MEDICAID | LOC: MHCPAIN 12:44 | DX: R26.89 Other abnormalities of gait and mobility (principal); R10.2 Pelvic and perineal pain; M25.551 Pain in right hip; M25.552 Pain in left hip | CPT/HCPCS: G0463 ==

== ENCOUNTER → 2024-03-03 | Outpatient (CLI) | payer MEDICARE, MEDICAID | LOC: MHCPAIN 11:11 | DX: M25.551 Pain in right hip (principal); M25.552 Pain in left hip; R26.89 Other abnormalities of gait and mobility; R68.89 Other general symptoms and signs | CPT/HCPCS: G0463 ==

== ENCOUNTER 2024-04-14 15:49 | Emergency (ER) | payer MEDICARE, MEDICAID ==
[~2024-04-14] VITALS: Ht 160 cm; Wt 99.5 kg
[2024-04-14 15:52] VITALS: TEMP 98.5
[2024-04-14 16:28] LABS: HEMATOCRIT 41.6 % (37.0-47.0); HEMOGLOBIN 13.9 g/dl (12.5-16.0); MEAN CELL VOLUME 90 fl (80.0-100.0); MEAN CORPUSCULAR HEMOGLOBIN 30 pg (27-31); MEAN CORPUSCULAR HGB CONC 33 g/dl (33.0-37.0); MEAN PLATELET VOLUME 11.1 fl (7.4-10.4); PLATELET COUNT 194 K/mm3 (130-400); RED BLOOD COUNT 4.61 M/mm3 (4.10-5.30); REDCELL DISTRIBUTION WIDTH-CV 12.4 % (11.5-14.5)
[2024-04-14 16:31] LABS: ALBUMIN 3.1 g/dL (3.5-5.0); BILIRUBIN,TOTAL 0.2 mg/dL (0.2-1.2); CALCIUM 8.8 mg/dL (8.4-10.2); CREATININE, serum 1.74 mg/dL (0.57-1.11)
[2024-04-14 16:46] LABS: EOSINOPHIL 14 % (0-4); NEUTROPHILS 52 % (42.0-75.2)
[2024-04-14 16:47] LABS: PLATELET ESTIMATE NORMAL (NORMAL)
[2024-04-14 16:49] LABS: LYMPHOCYTE 31 % (20.0-51.0)
[2024-04-14] MEDS ORDERED: NS 1,000 ML IV ONE (17:15)
[2024-04-14 20:04] VITALS: BP 117/77; PULSE 88
== END 2024-04-14 20:02 | disposition home or self-care (01) ==
LOC: COL.ER 15:49
PROVIDERS: Personal Emergency Response Attendant
DX: I95.9 Hypotension, unspecified (principal); E86.0 Dehydration; E87.5 Hyperkalemia; N28.9 Disorder of kidney and ureter, unspecified
CPT/HCPCS: J7030

== ENCOUNTER → 2024-05-30 | Outpatient (CLI) | payer MEDICARE, MEDICAID | LOC: MHCPAIN 09:55 | DX: R26.89 Other abnormalities of gait and mobility (principal); M25.551 Pain in right hip; R68.89 Other general symptoms and signs; M25.552 Pain in left hip | CPT/HCPCS: G0463 ==